=== PATIENT | female | born 1955 | race Caucasian/White ===

== ENCOUNTER 2018-03-11 12:54 | Emergency (ER) | payer OTHER ==
[~2018-03-11] VITALS: Ht 152.4 cm; Wt 64.9 kg
[~2018-03-11 12:54] MED LIST: ASPCH81 PO; CLX20 PO; DICL-201 PO; FLX10 PO; LISI10TA PO; PROM25TA PO
[2018-03-11 13:00] VITALS: TEMP 36.8; Ht 152.4 cm; Wt 64.9 kg
[2018-03-11] MEDS ORDERED: SODIUM CHLORIDE 0.9% 1000ML 1,000 ML IV STA (13:36)
[2018-03-11 14:00] LABS: BASO % 0.3 %; BASO ABS # 0.02 K/uL (0-0.2); EOS % 1.4 %; EOS ABS # 0.11 K/uL (0-0.5); HEMOGLOBIN 11.4 g/dL (12.0-16.0); LYMPH % 16.9 %; LYMPH ABS # 1.33 K/uL (1.2-3.4); MEAN CELL VOLUME 93.6 fL (80-100); MEAN CORPUSCULAR HEMOGLOBIN 30.5 pg (25-34); MEAN CORPUSCULAR HGB CONC 32.6 g/dl (32-36); MONO % 6.6 %; MONO ABS # 0.52 K/uL (0.11-0.59); NEUT % 74.8 %; NEUT ABS # 5.88 K/uL (1.4-6.5); PLATELET COUNT 294 K/uL (130-400); RED CELL DISTRIBUTION WIDTH SD 44.5 fL (36.4-46.3); WHITE BLOOD COUNT 7.86 K/uL (4.8-10.8)
[2018-03-11] MEDS ORDERED: CEFTRIAXONE SOD INJ 1 GM ADDVIAL IV STA (14:22)
[2018-03-11 14:42] LABS: CALCIUM 8.7 mg/dl (8.5-10.1); CREATININE 0.75 mg/dl (0.60-1.20)
--- NOTE | 2018-03-11 14:51 | DIAGNOSTIC IMAGING REPORT ---
ADDENDUM ADDENDUM: An additional 3 mm calcification is seen along the course of the distal right ureter on image #324. Either of the calcifications identified could potentially represent a distal ureteral stone, and both are difficult to definitively localize. Electronically signed by: Missael Cornelius M.D. 03/11/2018 2:58 PM Dictated Date/Time: 03/11/2018 2:[address] SCAN OF THE ABDOMEN AND PELVIS WITHOUT IV CONTRAST CLINICAL HISTORY: Right flank pain. COMPARISON STUDY: No priors. TECHNIQUE: CT scan of the abdomen and pelvis is performed from the lung bases to the proximal femora. Images are reviewed in the axial, sagittal, and coronal planes. IV contrast was not administered for this examination. A dose lowering technique was utilized adhering to the principles of ALARA. CT DOSE: 291.57 mGy.cm FINDINGS: Lung bases: The heart is normal in size and without pericardial effusion. There are small bilateral fat-containing Bochdalek hernias. The lung bases are otherwise clear. Liver: The unenhanced liver is top normal in size measuring 18 cm in length. The liver demonstrates diffusely diminished attenuation consistent with hepatic steatosis. Fatty sparing is seen adjacent to gallbladder fossa. There is no intrahepatic biliary ductal dilatation. Gallbladder: Unremarkable. Spleen: Normal in size and attenuation. Pancreas: Unremarkable. Adrenal glands: Unremarkable. Kidneys: The unenhanced kidneys demonstrate cortical atrophy. There is a 4 mm calculus identified along the course of the distal right ureter seen on image #328. This is difficult to localize, but likely represents an obstructing distal ureteral stone. There is mild to moderate right hydroureteronephrosis. There is associated right-sided perinephric stranding and trace fluid. An additional 7 mm nonobstructing calculus is seen in the right lower pole. No left renal calculi are identified and there is no left-sided hydronephrosis. Bilateral extrarenal pelvises are observed. There is no evidence of contour deforming renal mass lesion. Abdominal vasculature: The abdominal aorta is normal in course and caliber noting mild atherosclerotic calcification. Bowel: There is no bowel obstruction. Colonic fecal retention is observed. The appendix is well-visualized and normal. Peritoneum: There is no intraperitoneal free air or abdominal ascites. There is a small fat-containing umbilical hernia. Lymphadenopathy: None. Pelvic viscera: The bladder is normal as visualized. The uterus is surgically absent. No adnexal lesion is seen. Skeletal structures: The skeletal structures are osteopenic. Mild lumbosacral spondylosis is observed. No lytic or blastic lesions are seen. There are healed right pubic ring fractures. IMPRESSION: 1. A 4 mm calcification along the course of distal right ureter likely represents an obstructing distal ureteral stone. This is located just above the vesicoureteral junction, and there is mild to moderate right hydroureteronephrosis. 2. An additional nonobstructing calculus is noted in the right kidney. 3. No left renal calculi are identified. 4. Mild hepatic steatosis. Electronically signed by: Missael Cornelius M.D. 03/11/2018 2:50 PM Dictated Date/Time: 03/11/2018 2:37 PM
[2018-03-11 15:47] LABS: ISTAT CREATININE 0.7 mg/dl (0.6-1.3); ISTAT IONIZED CALCIUM 1.14 mmol/l (1.12-1.32); ISTAT POTASSIUM 3.6 mEq/L (3.3-5.0)
[2018-03-11 15:53] LABS: ISTAT CREATININE 0.7 mg/dl (0.6-1.3); ISTAT IONIZED CALCIUM 1.14 mmol/l (1.12-1.32); ISTAT POTASSIUM 3.6 mEq/L (3.3-5.0)
[2018-03-11] MEDS ORDERED: SULF800T23 PO (15:53)
[2018-03-11] MEDS ORDERED: ONDA4TAB10 SL (15:54)
[2018-03-11] MEDS ORDERED: TAMS0.4C38 PO (15:54)
[2018-03-11 16:12] VITALS: BP 162/78; PULSE 68; O2SAT 98
--- NOTE | 2018-03-11 17:15 | EMERGENCY ROOM VISIT NOTE ---
History Report prepared by Partha: Kaylene Jimenes Under the Supervision of: Dr. Dallin Burton M.D. First contact with patient: 13:11 Chief Complaint: URINARY SYMPTOMS Stated Complaint: ABD PAIN Nursing Triage Summary: patient has had rlq pain and pressure with urinary frequency and burning with urination for a few days. reports blood tinged urine. History of Present Illness The patient is a 62 year old female who presents to the Emergency Room with complaints of worsening urinary symptoms starting yesterday. The patient states that she has had lower right abdominal pain that radiates into her back for the past few days. She notes that yesterday she noticed pain with urination. The patient complains of nausea. The patient denies vomiting, fever, and a history of an appendectomy. Source of History: patient Onset: yesterday Position: abdomen Quality: other (urinary symptoms) Timing: worsening Associated Symptoms: + nausea, + abdominal pain, + back pain, No fevers, No vomiting Review of Systems See HPI for pertinent positives and negatives. A total of ten systems were reviewed and were otherwise negative. Past Medical & Surgical Medical Problems: (1) History of hyperthyroidism Surgical Problems: (1) H/O: hysterectomy Family History Diabetes mellitus Hypertension Seizures Social History Smoking Status: Never Smoker Marital Status: Housing Status: lives with family Current/Historical Medications Scheduled Citalopram Hydrobromide (Celexa), 40 MG PO DAILY Ondasetron Odt (Zofran Odt), 4 MG SL TID Sulfa/Trimethoprim (Bactrim Ds 800MG/160MG), 1 TAB PO BID Tamsulosin Hcl (Flomax), 0.4 MG PO DAILY Allergies Coded Allergies: No Known Allergies (Unverified , 03/11/18) Physical Exam Vital Signs Date Time Temp Pulse Resp B/P (MAP) Pulse Ox O2 Delivery O2 Flow Rate FiO2 03/11/18 16:12 68 16 162/78 98 03/11/18 14:21 73 16 158/83 97 Room Air 03/11/18 13:00 36.8 89 18 163/84 96 Room Air Physical Exam Physical Exam GENERAL: She is oriented to person, place, and time. She appears well- developed and well-nourished. She does not appear distressed. HENT: Exam performed. Head: Normocephalic and atraumatic. Right Ear: External ear normal. No mastoid tenderness. Left Ear: External ear normal. No mastoid tenderness. Mouth/Throat: The oropharynx is clear and moist. No trismus in the jaw. No dental abscesses or uvula swelling. No oropharyngeal exudate or tonsillar abscesses. EYES: Conjunctivae and EOM are normal. Pupils are equal, round, and reactive to light. Right eye exhibits no discharge. Left eye exhibits no discharge. No scleral icterus. NECK: Normal range of motion. Neck supple. No JVD present. No spinous process tenderness present. No carotid bruit present. No rigidity. No tracheal deviation and normal range of motion present. No Brudzinski's sign and no Kernig 's sign noted. CV: Normal rate, regular rhythm, normal heart sounds and intact distal pulses. There is no peripheral edema. Palpable radial pulses bue. PULM/CHEST: Effort normal and breath sounds normal. No respiratory distress. No stridor. She has no wheezes. She has no rales. Chest Wall: She exhibits no tenderness. ABD: The abdomen is soft. Bowel sounds are normal. She has no distension. No mass is present. There is right lower quadrant tenderness to palpation. There is no rebound, no guarding, no Zapata's sign and no tenderness at McBurney's point. Rovsig negative. Right sided CVA tenderness. MUSC/SKEL: Normal range of motion. There is no peripheral edema, tenderness or deformity. LYMPH: No cervical adenopathy. NEURO: She is alert and oriented to person, place, and time. She has normal strength. No cranial nerve deficit or sensory deficit. Coordination and gait normal. GCS eye subscore is 4. GCS verbal subscore is 5. GCS motor subscore is 6. Cerebellar tests wnl. SKIN: Skin is warm and dry. She is not diaphoretic. PSYCH: She has a normal mood and affect. Behavior is normal. Judgment and thought content normal. Medical Decision & Procedures ER Provider Diagnostic Interpretation: Radiology results as stated below per my review and radiologist interpretation: ADDENDUM ADDENDUM: An additional 3 mm calcification is seen along the course of the distal right ureter on image #324. Either of the calcifications identified could potentially represent a distal ureteral stone, and both are difficult to definitively localize. Electronically signed by: Missael Cornelius M.D. 03/11/2018 2:58 PM Dictated Date/Time: 03/11/2018 2:[address] SCAN OF THE ABDOMEN AND PELVIS WITHOUT IV CONTRAST CLINICAL HISTORY: Right flank pain. COMPARISON STUDY: No priors. TECHNIQUE: CT scan of the abdomen and pelvis is performed from the lung bases to the proximal femora. Images are reviewed in the axial, sagittal, and coronal planes. IV contrast was not administered for this examination. A dose lowering technique was utilized adhering to the principles of ALARA. CT DOSE: 291.57 mGy.cm FINDINGS: Lung bases: The heart is normal in size and without pericardial effusion. There are small bilateral fat-containing Bochdalek hernias. The lung bases are otherwise clear. Liver: The unenhanced liver is top normal in size measuring 18 cm in length. The liver demonstrates diffusely diminished attenuation consistent with hepatic steatosis. Fatty sparing is seen adjacent to gallbladder fossa. There is no intrahepatic biliary ductal dilatation. Gallbladder: Unremarkable. Spleen: Normal in size and attenuation. Pancreas: Unremarkable. Adrenal glands: Unremarkable. Kidneys: The unenhanced kidneys demonstrate cortical atrophy. There is a 4 mm calculus identified along the course of the distal right ureter seen on image #328. This is difficult to localize, but likely represents an obstructing distal ureteral stone. There is mild to moderate right hydroureteronephrosis. There is associated right-sided perinephric stranding and trace fluid. An additional 7 mm nonobstructing calculus is seen in the right lower pole. No left renal calculi are identified and there is no left-sided hydronephrosis. Bilateral extrarenal pelvises are observed. There is no evidence of contour deforming renal mass lesion. Abdominal vasculature: The abdominal aorta is normal in course and caliber noting mild atherosclerotic calcification. Bowel: There is no bowel obstruction. Colonic fecal retention is observed. The appendix is well-visualized and normal. Peritoneum: There is no intraperitoneal free air or abdominal ascites. There is a small fat-containing umbilical hernia. Lymphadenopathy: None. Pelvic viscera: The bladder is normal as visualized. The uterus is surgically absent. No adnexal lesion is seen. Skeletal structures: The skeletal structures are osteopenic. Mild lumbosacral spondylosis is observed. No lytic or blastic lesions are seen. There are healed right pubic ring fractures. IMPRESSION: 1. A 4 mm calcification along the course of distal right ureter likely represents an obstructing distal ureteral stone. This is located just above the vesicoureteral junction, and there is mild to moderate right hydroureteronephrosis. 2. An additional nonobstructing calculus is noted in the right kidney. 3. No left renal calculi are identified. 4. Mild hepatic steatosis. Electronically signed by: Missael Cornelius M.D. 03/11/2018 2:50 PM Dictated Date/Time: 03/11/2018 2:37 PM Laboratory Results 03/11/18 13:50 Red Blood Count 3.74, Mean Corpuscular Volume 93.6, Mean Corpuscular Hemoglobin 30.5, Mean Corpuscular Hemoglobin Concent 32.6, Mean Platelet Volume 9.0, Neutrophils (%) (Auto) 74.8, Lymphocytes (%) (Auto) 16.9, Monocytes (%) (Auto) 6.6, Eosinophils (%) (Auto) 1.4, Basophils (%) (Auto) 0.3, Neutrophils # (Auto) 5.88, Lymphocytes # (Auto) 1.33, Monocytes # (Auto) 0.52, Eosinophils # (Auto) 0.11, Basophils # (Auto) 0.02 03/11/18 13:50 Test 03/11/18 13:00 03/11/18 13:50 03/11/18 14:00 03/11/18 15:40 Urine Color YELLOW Urine Appearance CLEAR (CLEAR) Urine pH 7.0 (4.5-7.5) Urine Specific [place] 1.011 (1.000-1.030) Urine Protein NEG (NEG) Urine Glucose (UA) NEG (NEG) Urine Ketones NEG (NEG) Urine Occult Blood 2+ (NEG) Urine Nitrite POS (NEG) Urine Bilirubin NEG (NEG) Urine Urobilinogen NEG (NEG) Urine Leukocyte Esterase MODERATE (NEG) Urine WBC (Auto) 10-30 /hpf (0-5) Urine RBC (Auto) 0-4 /hpf (0-4) Urine Hyaline Casts (Auto) 1-5 /lpf (0-5) Urine Epithelial Cells (Auto) 10-20 /lpf (0-5) Urine Bacteria (Auto) 4+ (NEG) White Blood Count 7.86 K/uL (4.8-10.8) Red Blood Count 3.74 M/uL (4.2-5.4) Hemoglobin 11.4 g/dL (12.0-16.0) Hematocrit 35.0 % (37-47) Mean Corpuscular Volume 93.6 fL (80-100) Mean Corpuscular Hemoglobin 30.5 pg (25-34) Mean Corpuscular Hemoglobin Concent 32.6 g/dl (32-36) Platelet Count 294 K/uL (130-400) Mean Platelet Volume 9.0 fL (7.4-10.4) Neutrophils (%) (Auto) 74.8 % Lymphocytes (%) (Auto) 16.9 % Monocytes (%) (Auto) 6.6 % Eosinophils (%) (Auto) 1.4 % Basophils (%) (Auto) 0.3 % Neutrophils # (Auto) 5.88 K/uL (1.4-6.5) Lymphocytes # (Auto) 1.33 K/uL (1.2-3.4) Monocytes # (Auto) 0.52 K/uL (0.11-0.59) Eosinophils # (Auto) 0.11 K/uL (0-0.5) Basophils # (Auto) 0.02 K/uL (0-0.2) RDW Standard Deviation 44.5 fL (36.4-46.3) RDW Coefficient of Variation 13.0 % (11.5-14.5) Immature Granulocyte % (Auto) 0.0 % Immature Granulocyte # (Auto) 0.00 K/uL (0.00-0.02) Est Creatinine Clear Calc Drug Dose 66.2 ml/min Estimated GFR () 99.7 Estimated GFR (Non- 86.0 BUN/Creatinine Ratio 10.1 (10-20) Calcium Level 8.7 mg/dl (8.5-10.1) Lactic Acid Level 1.1 mmol/L (0.4-2.0) Bedside Hemoglobin 10.9 g/dl (12.0-16.0) Bedside Hematocrit 32 % (37-47) Bedside Sodium 142 mEq/L (135-144) Bedside Potassium 3.6 mEq/L (3.3-5.0) Bedside Chloride 105 mEq/L (101-112) Bedside Total CO2 24 mEq/l (24-31) Anion Gap 17.0 mmol/L (16-25) Bedside Blood Urea Nitrogen 5 mg/dl (7-18) Bedside Creatinine 0.7 mg/dl (0.6-1.3) Bedside Glucose (other) 85 mg/dl (70-99) Bedside Ionized Calcium (Mehdi) 1.14 mmol/l (1.12-1.32) Laboratory results reviewed by me Medications Administered Medications (Trade) Dose Ordered Sig/Deonte Route Start Time Stop Time Status Last Admin Dose Admin Sodium Chloride 1,000 ml @ 999 mls/hr Q1H1M STAT IV 03/11/18 13:36 03/11/18 14:36 DC 03/11/18 14:21 999 MLS/HR Ceftriaxone Sodium (Rocephin Inj) 1 gm NOW STAT IV 03/11/18 14:22 03/11/18 14:23 DC 03/11/18 14:44 1 GM ED Course 1314: The patient was evaluated in room B9. A complete history and physical exam was performed. At this time the patient offered Analgesia and she declined. 1336: Ordered NSS 1000 ml @ 999 mls/hr IV. 1422: Urinalysis shows UTI. Ordered Rocephin Inj 1 gm IV. 1555: Vital signs stable. Labs within normal limits with exception of urinalysis. CT showed 4 mm calcification of the distal right ureter. There is mild to moderate hydronephrosis. Patient states her pain is under control. Patient will be discharged with prescription Flomax antibiotics and follow-up urology. DISCHARGE - Plan of care discussed with patient and questions answered. The patient was given both verbal and printed discharge instructions. The patient verbalized understanding and ability to comply. The patient is to seek outpatient follow up as noted in the discharge instructions. The patient verbalized understanding and ability to comply. The patient is discharged in stable condition. The patient was instructed to return for worsening symptoms. Medical Decision 1314: The patient was evaluated in room B9. A complete history and physical exam was performed. At this time the patient offered Analgesia and she declined. 1336: Ordered NSS 1000 ml @ 999 mls/hr IV. 1422: Urinalysis shows UTI. Ordered Rocephin Inj 1 gm IV. 1555: Vital signs stable. Labs within normal limits with exception of urinalysis. CT showed 4 mm calcification of the distal right ureter. There is mild to moderate hydronephrosis. Patient states her pain is under control. Patient will be discharged with prescription Flomax antibiotics and follow-up urology. DISCHARGE - Plan of care discussed with patient and questions answered. The patient was given both verbal and printed discharge instructions. The patient verbalized understanding and ability to comply. The patient is to seek outpatient follow up as noted in the discharge instructions. The patient verbalized understanding and ability to comply. The patient is discharged in stable condition. The patient was instructed to return for worsening symptoms. Medication Reconcilliation Current Medication List: was personally reviewed by me Blood Pressure Screening Patient's blood pressure: Elevated blood pressure Blood pressure disposition: Elevated BP felt to be situational Impression Primary Impression: Kidney stones Scribe Attestation The scribe's documentation has been prepared under my direction and personally reviewed by me in its entirety. I confirm that the note above accurately reflects all work, treatment, procedures, and medical decision making performed by me. The chart was completed utilizing [employer] Speech voice recognition software. Grammatical errors, random word insertions, pronoun errors, and incomplete sentences are an occasional consequence of this system due to software limitations, ambient noise, and hardware issues. Any formal questions or concerns about the content, text, or information contained within the body of this dictation should be directly addressed to the physician for clarification. Departure Information Dispostion Home / Self-Care Prescriptions Tamsulosin Hcl (FLOMAX) 0.4 Mg Cap 0.4 MG PO DAILY, #10 CAP Prov: Dallni Burton M.D. 03/11/18 Ondasetron Odt (ZOFRAN ODT) 4 Mg Tab 4 MG SL TID for Nausea, #30 TAB Prov: Dallin Burton M.D. 03/11/18 Sulfa/Trimethoprim (Bactrim Ds 800MG/160MG) Tab 1 TAB PO BID, #14 TAB Prov: Dallin Burton M.D. 03/11/18 Referrals Thaddeus Otero PA-C (PCP) Forms HOME CARE DOCUMENTATION FORM, IMPORTANT VISIT INFORMATION Patient Instructions My [facility]
[2018-03-13] MEDS ORDERED: CITA40TA12 PO (13:50)
== END 2018-03-11 16:12 | disposition home or self-care (01) ==
LOC: EDBD 12:54 → C.EDB 12:55
DX: N20.0 Calculus of kidney (principal)

== ENCOUNTER 2018-03-13 14:32 | Emergency (ER) | payer OTHER ==
[~2018-03-13] VITALS: Ht 152.4 cm; Wt 63.9 kg
[~2018-03-13 14:32] MED LIST changes: -ASPCH81 PO; +CITA40TA12 PO; -CLX20 PO; -DICL-201 PO; -FLX10 PO; -LISI10TA PO; +ONDA4TAB10 SL; -PROM25TA PO; +SULF800T23 PO; +TAMS0.4C38 PO
[2018-03-13 14:47] VITALS: TEMP 36.8; Ht 152.4 cm; Wt 63.9 kg
[2018-03-13] MEDS ORDERED: CEFTRIAXONE SOD INJ 1 GM ADDVIAL IV STA (15:01)
[2018-03-13] MEDS ORDERED: SODIUM CHLORIDE 0.9% 1000ML 1,000 ML IV STA (15:01)
--- NOTE | 2018-03-13 15:19 | EMERGENCY ROOM VISIT NOTE ---
History Report prepared by Partha: Sharon Bianchi Under the Supervision of: Dr. Missael Mccrary M.D. First contact with patient: 14:52 Chief Complaint: KIDNEY STONE Stated Complaint: KIDNEY STONES,ANTIBIOTIC RESISTANT BACTERIA History of Present Illness The patient is a 62 year old female who presents to the Emergency Room with complaints of a kidney stone. She reports 2 days ago, she came to the ED with 2 days of right sided flank pain. Here in the ED on March 11, the patient was found to have a normal WBC, normal renal function, and her urine showed infection with E-Coli that is resistant to Bactrim and Ampicillin. She was found to have a ureteral stone, possibly 2, with the largest being 4 mm. She was discharged on Bactrim and Flomax. Earlier today, the patient was called and told to discontinue the Bactrim and come directly to the ED. Since she left the ED two days ago, she complains of a persistent headache, tiredness, and right side abdominal pain. The patient denies vomiting and difficulty with taking in fluids. She has not noticed a stone in her urine, which she has been straining. She states she has never had a kidney stone before now. Source of History: patient Onset: 5 days [employer]UCATION [employer]GRAM [employer] Position: back (Right-sided flank) Quality: other (Kidney stone) Timing: constant Modifying Factors (Relieving): ibuprofen Associated Symptoms: + headache, + abdominal pain, No vomiting Review of Systems See HPI for pertinent positives & negatives. A total of 10 systems reviewed and were otherwise negative. Past Medical & Surgical Medical Problems: (1) History of hyperthyroidism Surgical Problems: (1) H/O: hysterectomy Family History Diabetes mellitus Hypertension Seizures Social History Smoking Status: Never Smoker Alcohol Use: none Drug Use: none Marital Status: Housing Status: lives with family Occupation Status: retired Current/Historical Medications Scheduled Cefdinir (Omnicef), 300 MG PO Q12H Citalopram Hydrobromide (Celexa), 40 MG PO DAILY Ondasetron Odt (Zofran Odt), 4 MG SL TID Sulfa/Trimethoprim (Bactrim Ds 800MG/160MG), 1 TAB PO BID Tamsulosin Hcl (Flomax), 0.4 MG PO DAILY Allergies Coded Allergies: No Known Allergies (Unverified , 03/11/18) Physical Exam Vital Signs Date Time Temp Pulse Resp B/P (MAP) Pulse Ox O2 Delivery O2 Flow Rate FiO2 03/13/18 16:34 73 132/76 94 03/13/18 16:00 79 146/75 98 Room Air 03/13/18 15:28 71 18 133/75 98 Room Air 03/13/18 14:47 36.8 88 18 120/73 96 Room Air Physical Exam GENERAL: Patient is in no acute distress. HEENT: No acute trauma, normocephalic atraumatic, mucous membranes moist, no nasal congestion, no scleral icterus. NECK: No stridor, no adenopathy, no meningismus, trachea is midline. LUNGS: Clear to auscultation bilaterally, no wheeze, no rhonchi, breath sounds equal. BACK: Right flank discomfort with percussion. HEART: Without murmurs gallops or rubs, regular rate and rhythm. ABDOMEN: Soft, mildly tender in RLQ, bowel sounds positive, no hernias, no peritonitis. EXTREMITIES: No cyanosis or edema, full range of motion of all the joints without pain or difficulty, no signs for acute trauma. NEUROLOGIC: Oriented x 3, no acute motor or sensory deficits, no focal weakness. SKIN: No rash, no jaundice, no diaphoresis. Medical Decision & Procedures ER Provider Diagnostic Interpretation: Radiology results as stated below per my review and radiologist interpretation: KUB CLINICAL HISTORY: Abdominal pain COMPARISON STUDY: CT scan dated 03/11/2018 FINDINGS: There is no pathologic bowel dilatation. There is a 5 mm right renal calculus. There are punctate nonspecific right pelvic basin calcifications. IMPRESSION: 1. Right-sided nephrolithiasis 2. No evidence of pathologic bowel dilatation. Electronically signed by: Jerman Martinez M.D. 03/13/2018 3:15 PM Laboratory Results 03/13/18 15:14 Red Blood Count 3.80, Mean Corpuscular Volume 92.9, Mean Corpuscular Hemoglobin 30.8, Mean Corpuscular Hemoglobin Concent 33.1, Mean Platelet Volume 8.7, Neutrophils (%) (Auto) 61.6, Lymphocytes (%) (Auto) 29.5, Monocytes (%) (Auto) 6.3, Eosinophils (%) (Auto) 2.0, Basophils (%) (Auto) 0.4, Neutrophils # (Auto) 2.75, Lymphocytes # (Auto) 1.32, Monocytes # (Auto) 0.28, Eosinophils # (Auto) 0.09, Basophils # (Auto) 0.02 03/13/18 15:14 Test 03/13/18 15:09 03/13/18 15:14 Urine Color YELLOW Urine Appearance CLOUDY (CLEAR) Urine pH 5.0 (4.5-7.5) Urine Specific [place] 1.019 (1.000-1.030) Urine Protein NEG (NEG) Urine Glucose (UA) NEG (NEG) Urine Ketones TRACE (NEG) Urine Occult Blood NEG (NEG) Urine Nitrite NEG (NEG) Urine Bilirubin NEG (NEG) Urine Urobilinogen NEG (NEG) Urine Leukocyte Esterase SMALL (NEG) Urine WBC (Auto) 5-10 /hpf (0-5) Urine RBC (Auto) 0-4 /hpf (0-4) Urine Hyaline Casts (Auto) >30 /lpf (0-5) Urine Epithelial Cells (Auto) >30 /lpf (0-5) Urine Bacteria (Auto) NEG (NEG) Urine Renal Epithelial Cells 0-5 /lpf (0-5) Urine Pathogenic Casts /lpf (0) White Blood Count 4.47 K/uL (4.8-10.8) Red Blood Count 3.80 M/uL (4.2-5.4) Hemoglobin 11.7 g/dL (12.0-16.0) Hematocrit 35.3 % (37-47) Mean Corpuscular Volume 92.9 fL (80-100) Mean Corpuscular Hemoglobin 30.8 pg (25-34) Mean Corpuscular Hemoglobin Concent 33.1 g/dl (32-36) Platelet Count 311 K/uL (130-400) Mean Platelet Volume 8.7 fL (7.4-10.4) Neutrophils (%) (Auto) 61.6 % Lymphocytes (%) (Auto) 29.5 % Monocytes (%) (Auto) 6.3 % Eosinophils (%) (Auto) 2.0 % Basophils (%) (Auto) 0.4 % Neutrophils # (Auto) 2.75 K/uL (1.4-6.5) Lymphocytes # (Auto) 1.32 K/uL (1.2-3.4) Monocytes # (Auto) 0.28 K/uL (0.11-0.59) Eosinophils # (Auto) 0.09 K/uL (0-0.5) Basophils # (Auto) 0.02 K/uL (0-0.2) RDW Standard Deviation 44.7 fL (36.4-46.3) RDW Coefficient of Variation 13.1 % (11.5-14.5) Immature Granulocyte % (Auto) 0.2 % Immature Granulocyte # (Auto) 0.01 K/uL (0.00-0.02) Anion Gap 8.0 mmol/L (3-11) Est Creatinine Clear Calc Drug Dose 41.1 ml/min Estimated GFR () 56.5 Estimated GFR (Non- 48.7 BUN/Creatinine Ratio 9.0 (10-20) Calcium Level 8.3 mg/dl (8.5-10.1) Laboratory results reviewed by me. Medications Administered Medications (Trade) Dose Ordered Sig/Deonte Route Start Time Stop Time Status Last Admin Dose Admin Sodium Chloride 1,000 ml @ 999 mls/hr Q1H1M STAT IV 03/13/18 15:01 03/13/18 16:01 DC 03/13/18 15:30 999 MLS/HR Ceftriaxone Sodium (Rocephin Inj) 1 gm NOW STAT IV 03/13/18 15:01 03/13/18 15:03 DC 03/13/18 15:29 1 GM ED Course 1453: The patient was evaluated in room B12. A complete history and physical exam was performed. 1501: Rocephin 1 gm IV, NSS 1000 ml @ 999 mls/hr IV. 1607: I discussed the patients case with Dr. Alas, [facility]. He states the patient can go home on a different antibiotic 1610: I reevaluated the patient. She is feeling well and resting comfortably. I discussed her discharge instructions and she verbalized complete understanding and agreement. Medical Decision The differential diagnoses considered include: renal colic, pyelonephritis, UTI , renal failure, electrolyte imbalance, failed outpatient treatment There is no leukocytosis or concerning anemia. No significant electrolyte abnormality or kidney failure. KUB does not show any obvious ureteral stone. Urinalysis is consistent with contamination, no obvious infection. On the urine culture from a few days ago, the E. coli was resistant to Bactrim and ampicillin, the patient had been discharged on Bactrim. She had received a dose of ceftriaxone during her ED stay. The organism was sensitive to ceftriaxone. The patient received IV saline and IV ceftriaxone, I spoke with urology. As the patient is doing well, she is being discharged, emergent stenting was not felt needed, hospitalization was not felt needed. Patient is being discharged on Omnicef. She will continue the Flomax. She will see urology in a few days and return to our ER for worsening symptoms. Medication Reconcilliation Current Medication List: was personally reviewed by me Blood Pressure Screening Patient's blood pressure: Elevated blood pressure Blood pressure disposition: Elevated BP felt to be situational Consults Time Called: 1602 Consulting Physician: Dr. Alas, [facility] Returned Call: 1607 I discussed the patients case with Dr. Alas, [facility]. He states the patient can go home on a different antibiotic. Impression Primary Impression: Renal colic Additional Impression: Urinary tract infection Scribe Attestation The scribe's documentation has been prepared under my direction and personally reviewed by me in its entirety. I confirm that the note above accurately reflects all work, treatment, procedures, and medical decision making performed by me. Departure Information Dispostion Home / Self-Care Prescriptions Cefdinir (OMNICEF) 300 Mg Cap 300 MG PO Q12H for 10 Days, #20 CAP Prov: Missael Mccrary M.D. 03/13/18 Referrals Thaddeus Otero PA-C (PCP) Patient Instructions My [facility] Additional Instructions stop the bactrim use omnicef 2x per day for 10 days continue the flomax strain all the urine see urology this week return for fever, vomiting or worsening pain Problem Qualifiers
[2018-03-13 15:37] LABS: BASO % 0.4 %; BASO ABS # 0.02 K/uL (0-0.2); EOS ABS # 0.09 K/uL (0-0.5); HEMATOCRIT 35.3 % (37-47); HEMOGLOBIN 11.7 g/dL (12.0-16.0); IG# 0.01 K/uL (0.00-0.02); LYMPH % 29.5 %; LYMPH ABS # 1.32 K/uL (1.2-3.4); MEAN CELL VOLUME 92.9 fL (80-100); MEAN CORPUSCULAR HEMOGLOBIN 30.8 pg (25-34); MEAN CORPUSCULAR HGB CONC 33.1 g/dl (32-36); MEAN PLATELET VOLUME 8.7 fL (7.4-10.4); MONO % 6.3 %; MONO ABS # 0.28 K/uL (0.11-0.59); NEUT % 61.6 %; NEUT ABS # 2.75 K/uL (1.4-6.5); PLATELET COUNT 311 K/uL (130-400); RED CELL DISTRIBUTION WIDTH CV 13.1 % (11.5-14.5); RED CELL DISTRIBUTION WIDTH SD 44.7 fL (36.4-46.3); WHITE BLOOD COUNT 4.47 K/uL (4.8-10.8)
[2018-03-13 15:55] LABS: CALCIUM 8.3 mg/dl (8.5-10.1); CREATININE 1.2 mg/dl (0.60-1.20); POTASSIUM 3.4 mmol/L (3.5-5.1)
[2018-03-13] MEDS ORDERED: CEFD300C2 PO (16:15)
[2018-03-13 16:34] VITALS: BP 132/76; PULSE 73; O2SAT 94
== END 2018-03-13 16:34 | disposition home or self-care (01) ==
LOC: C.EDB 14:33
DX: N23 Unspecified renal colic (principal); N39.0 Urinary tract infection, site not specified; Z79.899 Other long term (current) drug therapy